=== PATIENT | male | born 1975 | race Caucasian/White ===

== ENCOUNTER 2020-09-13 08:18 | Emergency (ER) | payer OTHER, SELFPAY ==
--- NOTE | ~2020-09-13 | XR_ITS ---
EXAMINATION: XR LUMBOSACRAL SPINE CLINICAL INFORMATION: Low back pain COMPARISON: None TECHNIQUE: Three views of the lumbosacral spine. FINDINGS: Bone alignment is normal. No fracture or dislocation is seen. There is mild spondylosis at L3-L4. Disc spaces are normal. Paraspinal soft tissues are normal. XR/XR lumbar spine 2-3V IMPRESSION: Mild degenerative spondylosis at L3-L4.
[2020-09-13 09:03] VITALS: BP 141/95; PULSE 92; RESP 18; TEMP 37.1; O2SAT 95; BMI 27.3
[2020-09-13] MEDS: Ketorolac Tromethamine 30 MG/ML VIAL IM (09:25)
--- NOTE | 2020-09-13 09:54 | ED.BACK ---
HPI - Back Pain/Injury General Chief Complaint: Back Pain/Injury Stated Complaint: back pain Time Seen by Provider: 09/13/20 09:18 Source: patient Mode of arrival: ambulatory History of Present Illness HPI Narrative: 44-year-old male with no significant past medical history presenting to the ED complaining of left-sided low back pain x3 days. Denies known injury/trauma or falls. Reports pain radiates down LLE. Does admit to changing a faucet on Saturday prior to pain. Denies numbness, tingling, weakness, urinary incontinence/retention, fever MD elicited complaint: back pain Related Data Previous Rx's Medication Instructions Recorded acetaminophen [Tylenol Extra 500 mg PO Q6H PRN #20 tab 09/13/20 Strength] cyclobenzaprine 5 mg PO Q8H PRN 5 Days #14 tab 09/13/20 lidocaine [Lidoderm] 1 patch TOPICAL DAILY PRN #30 ea 09/13/20 MDD remove after 12 hours naproxen 500 mg PO BID PRN 10 Days #20 tab 09/13/20 Allergies Allergy/AdvReac Type Severity Reaction Status Date / Time penicillin V Allergy Unknown vomiting, Verified 09/13/20 09:06 vomiting, erythema Penicillins [PENICILLINS] AdvReac Mild VOMITING Unverified 02/18/20 15:53 Review of Systems Review of Systems: Constitutional: No Fever, No Chills Genitourinary: No Urinary Incontinence/retention Musculoskeletal: +back pain, No Myalgias, No Joint Swelling Skin: No Skin Lesions, No rash Neuro: No Weakness, No Numbness, No Paresthesias Yes all other systems are reviewed and are negative [facility] Past Medical History Attestation statement: The following information was validated with the patient. Medical History (Updated 09/13/20 @ 09:58 by JACEK Koo) No known health problems Social History Social History Advance Directives: No Physical Exam Vital Signs: Vital Signs: Last Vital Signs Temp 98.8 F 09/13/20 09:03 Pulse 92 09/13/20 09:03 Resp 18 09/13/20 10:09 BP 141/95 H 09/13/20 09:03 Pulse Ox 95 09/13/20 09:03 Body Mass Index 27.3 Const: General: cooperative, healthy appearing and comfortable Orientation/consciousness: patient oriented x3 Limitations: no limitations HENMT: Head: Yes normal to inspection Ears: hearing grossly normal bilaterally General nose exam: Normal external nose present Face and sinus: Yes normal facial exam Eyes: General: appearance normal, both eyes and all related structures EOM: EOMs intact bilaterally Neck: Other: No midline cervical spinous tenderness/step-offs Neck: Yes normal visual inspection Resp: Effort & Inspection: normal respiratory effort Cardio: Rate: regular rate Back/Spine/Pelvis: Other: No midline thoracic/lumbar spinous tenderness or step-offs. Pain not reproducible on exam Skin: Rashes: no rashes Wounds: no wounds Neuro: Other: No saddle anesthesia General: patient oriented x3, gait normal, tone normal and moves all extremities Gait exam (Neuro): Normal gait present Motor exam (neuro): 5/5 motor strength present throughout Extrem: General: Yes normal to inspection Course Course Course Narrative: XR lumbar spine 2-3V IMPRESSION: Mild degenerative spondylosis at L3-L4. >> results discussed with patient including worrisome s/s and strict return precautions MDM - Back Pain/Injury MDM Narrative Medical decision making narrative: On exam VSS, NAD, likely MSK back pain/sciatica. Low concern for cauda equina/cord compression, no midline spinous tenderness, no red flag symptoms. Patient requesting x-ray Medical Records Attestation: I reviewed the patient's medical records. Lab Data Attestation: I reviewed the patient's lab results. Discharge Plan Discharge Clinical Impression: Sciatica Qualifiers: Laterality: left Qualified Code(s): M54.32 - Sciatica, left side Patient Disposition: Home, Self-Care Instructions: Back Pain (ED) Additional Instructions: Your x-ray showed mild degenerative changes of L3-L4, no fracture or dislocation Your pain is likely musculoskeletal Flexeril is a muscle relaxer, take at night as it makes you drowsy, do not drive, drink alcohol, or operate machinery while taking it Naproxen as an anti-inflammatory / pain medication, take with food Lidoderm patches are numbing patches, apply to painful area In addition take Tylenol at home If symptoms persist or worsen, pain becomes unbearable, you developed urinary retention or incontinence, or weakness return to the ED Prescriptions: New acetaminophen [Tylenol Extra Strength] 500 mg tablet 500 mg PO Q6H PRN (Reason: pain or fever) Qty: 20 RF: 0 lidocaine [Lidoderm] 5 % adhesive patch,medicated 1 patch topical DAILY MDD remove after 12 hours PRN (Reason: pain) Qty: 30 RF: 0 naproxen 500 mg tablet 500 mg PO BID PRN (Reason: pain) 10 Days Qty: 20 RF: 0 cyclobenzaprine 5 mg tablet 5 mg PO Q8H PRN (Reason: pain (scale score 7-10)) 5 Days Qty: 14 RF: 0 Referrals: Byron Reeves PA-C [Primary Care Provider] - 2 days Stand Alone Forms: Work/School Release
[2020-09-13 10:09] VITALS: RESP 18
== END 2020-09-13 10:44 | disposition home or self-care (01) ==
PROVIDERS: Emergency Provider Emergency Medicine; PCP Physician Assistant
DX: M54.42 Lumbago with sciatica, left side (principal)
CPT/HCPCS: 72100; 96372; 99283; 99284; J1885

== ENCOUNTER 2021-01-19 11:59 | Emergency (ER) | payer OTHER, SELFPAY ==
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
[2021-01-19 12:51] VITALS: BP 121/85; PULSE 85; RESP 16; TEMP 37.1; O2SAT 99; BMI 26.6
[2021-01-19 14:29] LABS: MANUAL DIFF FLAG NO
[2021-01-19 14:32] LABS: Basophils Percent Auto 0.3 % (0-2); Eosinophils Absolute Auto 0.3 X10*3/uL (0.0-0.4); Eosinophils Percent Auto 2.5 % (0-4); Hematocrit 40.8 % (42-52); Hemoglobin 13.7 g/dl (14.0-18.0); Imm Gran Abs Auto 0.02 X10*3/uL (0.00-0.03); Imm Gran Pct Auto 0.2 % (0.0-0.4); Lymphocytes Absolute Auto 1.9 X10*3/uL (1.2-4.9); Lymphocytes Percent Auto 19.1 % (20-40); Mean Corpuscular HGB Conc 33.6 g/dl (31.0-36.0); Mean Corpuscular Hemoglobin 31.9 pg (27.0-33.0); Mean Corpuscular Volume 95.1 fL (80-98); Mean Platelet Volume 9.2 fL (9.4-12.4); Monocytes Absolute Auto 0.7 X10*3/uL (0.1-1.2); Monocytes Percent Auto 6.7 % (2-11); Neutrophils Percent Auto 71.2 % (45-73); Platelet Count 355 X10*3/uL (160-400); Red Blood Count 4.29 X10*6/uL (4.60-5.80); Red Cell Distribution Width 13.2 % (11.0-16.0); White Blood Count 9.9 X10*3/uL (4.8-10.8)
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
[2021-01-19 14:59] LABS: Anion Gap 8 (12-20); Blood Urea Nitrogen 10 mg/dL (9-16); Calcium 8.6 mg/dL (8.4-10.2); Carbon Dioxide 29 mmol/L (22-29); Chloride 107 mmol/L (96-108); Creatinine Clr Calc Pharmacy 103.8; Estimated Glomerular Filt Rate > 60; Glucose Random 96 mg/dL (60-115); Potassium 4.1 mmol/L (3.3-5.1); Sodium 140 mmol/L (135-145)
[2021-01-19] MEDS: Ketorolac Tromethamine 60 MG/2 ML VIAL IM (15:08)
== END 2021-01-19 16:38 | disposition home or self-care (01) ==
PROVIDERS: Emergency Provider Emergency Medicine; PCP Physician Assistant
DX: R51.9 Headache, unspecified (principal); R09.81 Nasal congestion
CPT/HCPCS: 36415; 70200; 80048; 85025; 96372; 99284; J1885